=== PATIENT | female | born 1955 | race Caucasian/White ===

== ENCOUNTER 2021-09-24 11:14 | Outpatient (CLI) | payer MEDICARE, BC | END 2021-09-24 11:15 | disposition home or self-care (01) | LOC: NAV RAD 11:14 | PROVIDERS: ATTEND Family Medicine | DX: M15.9 Polyosteoarthritis, unspecified (principal); M47.816 Spondylosis without myelopathy or radiculopathy, lumbar region | CPT/HCPCS: 72100 ==

== ENCOUNTER 2024-03-13 12:01 | Outpatient (CLI) | payer MEDICARE | END 2024-03-13 12:02 | disposition home or self-care (01) | LOC: NAV RAD 12:01 | PROVIDERS: ATTEND Family Medicine | DX: M79.645 Pain in left finger(s) (principal); M18.12 Unilateral primary osteoarthritis of first carpometacarpal joint, left hand ==